=== PATIENT | female | born 1995 | race Two or more races ===

== ENCOUNTER 2022-06-27 06:51 | Emergency (ER) | payer MEDICAID ==
[~2022-06-27] VITALS: Ht 162.6 cm; Wt 87.5 kg
[2022-06-27 07:15] VITALS: BP 111/60
[2022-06-27] MEDS ORDERED: PRED20TA2 PO (07:52)
[2022-06-27] MEDS ORDERED: DIPH25CA66 PO (07:52)
[2022-06-27] MEDS ORDERED: diphenhdrAMINE HCL 50 MG/1 ML VL IM ONE (08:00)
[2022-06-27] MEDS ORDERED: methylPREDNISolone SOD SUCC 125 MG/2 ML VL IM ONE (08:00)
== END 2022-06-27 07:52 | disposition home or self-care (01) ==
LOC: ER 06:51
DX: S40.862A Insect bite (nonvenomous) of left upper arm, initial encounter (principal); S80.862A Insect bite (nonvenomous), left lower leg, initial encounter; W57.XXXA Bitten or stung by nonvenomous insect and other nonvenomous arthropods, initial encounter; Y93.89 Activity, other specified; Y92.89 Other specified places as the place of occurrence of the external cause; Y99.8 Other external cause status
CPT/HCPCS: 96372; 99284; J1200; J2930